=== PATIENT | female | born 1990 | race African-American/Black ===

== ENCOUNTER 2021-01-09 11:28 | Emergency (ER) | payer BC ==
[~2021-01-09] VITALS: Ht 175.3 cm; Wt 93.0 kg
[2021-01-09] MEDS ORDERED: TRETINOIN (11:39)
[2021-01-09] MEDS ORDERED: AMLO2.5T45 PO (11:39)
[2021-01-09] MEDS ORDERED: [UNRECOGNIZED DRUG - CODE] MC (11:39)
[2021-01-09] MEDS ORDERED: LISI40TA13 PO (11:39)
[2021-01-09] MEDS ORDERED: [UNRECOGNIZED DRUG - OTHER] (11:39)
[2021-01-09] MEDS ORDERED: POTASSIUM (11:39)
[2021-01-09 12:39] LABS: CLARITY URINE CLOUDY (CLEAR); COLOR URINE RED (YELLOW); KETONES URINE TRACE (NEGATIVE); LEUKOCYTE ESTERASE URINE 1+ (NEGATIVE); NITRITE URINE NEGATIVE (NEGATIVE); OCCULT BLOOD URINE 3+ (NEGATIVE); PROTEIN URINE 2+ (NEGATIVE); SPECIFIC GRAVITY URINE 1.023 (1.005-1.030); UROBILINOGEN URINE 0.2 E.U./dL (0.2-1.0)
[2021-01-09 12:40] LABS: BASOPHILS % 0.8 % (0.0-2.0); EOSINOPHILS % 2.9 % (0.0-5.0); HEMATOCRIT. 30.5 % (36.0-48.0); HEMOGLOBIN. 10.4 g/dL (12.0-16.0); LYMPHOCYTES % 32.2 % (20.0-50.0); MEAN CORPUSCULAR HEMOGLOBIN 30.5 pg (28.0-32.0); MEAN CORPUSCULAR VOLUME 89.2 fL (81.0-99.0); MEAN PLATELET VOLUME 7.4 fl (7.4-10.4); MONOCYTES % 5.7 % (2.0-8.0); NEUTROPHILS % 58.4 % (40.0-76.0); PLATELET 409 x1000/uL (130-400); RED BLOOD CELL COUNT 3.42 mill/uL (4.2-5.4); RED CELL DISTRIBUTION WIDTH 16.8 % (11.6-14.6)
[2021-01-09 12:48] LABS: CHLORIDE 108 mEq/L (98-107)
[2021-01-09 12:59] LABS: HCG SCREEN NEGATIVE
[2021-01-09 15:10] VITALS: BP 148/87
== END 2021-01-09 15:28 | disposition home or self-care (01) ==
LOC: ER 11:28
DX: N93.9 Abnormal uterine and vaginal bleeding, unspecified (principal); D25.9 Leiomyoma of uterus, unspecified; D64.9 Anemia, unspecified; I10 Essential (primary) hypertension; Z85.6 Personal history of leukemia; Z88.8 Allergy status to other drugs, medicaments and biological substances; Z92.21 Personal history of antineoplastic chemotherapy; Z91.018 Allergy to other foods; Z98.890 Other specified postprocedural states
CPT/HCPCS: 36415; 76830; 76856; 80053; 81003; 81025; 84703; 85025; 86850; 86900; 86901; 99284; Z7610